=== PATIENT | female | born 1985 | race Caucasian/White ===

== ENCOUNTER 2017-06-25 04:03 | Emergency (ER) | payer OTHER ==
[~2017-06-25] VITALS: Ht 160 cm; Wt 77.1 kg
[~2017-06-25 04:03] MED LIST: AMITRIPTYLINE H25 M1 PO; AMOXIL 875 MG875 MG PO; AUGMENTIN 875-1 EACH PO; BENTYL10 M1 PO; CARAFATE 1GM1000 MG PO; CLINDAMYCIN HY300 MG PO; EXCEDRIN MIGRAI1 TAB PO; MEDROL4 M2 PO; METOCLOPRAMIDE10 MG PO; NASONEX0.05 MG/Ac NAS; NEXIUM 40MG40 MG PO; OXY IR5 MG PO; PERCOCET 325 MG1 TA2 PO; PERCOCET 5-3251 EACH PO; PHENERGAN25 M1 PO; REGLAN10 MG PO; TOPIRAMATE50 MG PO; TRAMADOL HCL50 M1 PO; TYLENOL XSTR500 MG PO; ZANTAC150 MG PO; ZOFRAN ODT4 M1 PO; ZOFRAN ODT4 MG SL
[2017-06-25] MEDS ORDERED: NEXIUM40 M1 PO (04:30)
--- NOTE | 2017-06-25 04:50 | ED GI/GU/ABDOMINAL COMPLAINT ---
See Addendum History of Present Illness General Chief Complaint: General Adult Stated Complaint: MULTI COMP X'S 2 HRS +N/CHILLS BODY ACHES\ Source: patient, family, old records Exam Limitations: no limitations Vital Signs & Intake/Output Vital Signs & Intake/Output Vital Signs Date Time Temp Pulse Resp B/P B/P Pulse O2 O2 Flow FiO2 Mean Ox Delivery Rate 06/25 0643 97.0 86 20 97/56 100 Room Air 06/25 0421 95.7 60 20 94/59 99 Room Air Allergies Coded Allergies: NSAIDS (Non-Steroidal Anti-Inflamma (ULCERS 11/04/15) aspirin (GI DISTRESS 05/23/15) ibuprofen (GI DISTRESS 05/23/15) naproxen (GI DISTRESS 05/23/15) Reconcile Medications Amoxicillin/Potassium Clav (Augmentin 875-125 Tablet) 875 MG-125 MG TABLET 1 TAB PO BID INFECTION Amoxicillin/Potassium Clav (Augmentin 875-125 Tablet) 875 MG-125 MG TABLET 1 TAB PO BID DENTAL Dicyclomine Hydrochloride (Bentyl) 10 MG CAPSULE 1 CAP PO TID PRN SPASM Esomeprazole (Nexium) 40 MG CAPSULE.DR 1 CAP PO DAILY ACID REFLUX (Reported) Esomeprazole (Nexium) 40 MG CAP 1 TAB PO BID GASTRITIS Methylprednisolone. (Medrol) 4 MG TAB.DS.PK 1 DP PO AD SWELLING 6 on day 1 then reduce by one tablet daily until gone Ondansetron (Zofran Odt) 4 MG TAB.RAPDIS 1 TAB PO Q6 PRN NAUSEA Oxycodone HCl/Acetaminophen (Percocet 5-325 MG Tablet) 5 MG-325 MG TABLET 1 TAB PO BID PRN PAIN Topiramate 50 MG TABLET 1 TAB PO BID MIGRAINES (Reported) Tramadol HCl 50 MG TABLET 1 TAB PO BIDP PRN PAIN Triage Note: PT HERE WITH C/O ABD PAIN THAT BEGAN AT 1 AM ALONG WITH NAUSEA AND CHILLS. PT ALOS REPORTS NUMBNESS IN HER HANDS. Triage Nurses Notes Reviewed? yes LMP (ages 10-50): unknown ? n Is pt currently ? No Onset: 2 days Duration: day(s):, constant, continues in ED, getting worse Timing: recent history Quality/Severity: aching, fullness, severe, stabbing Location: right lower quadrant Radiation: no radiation Activities at Onset: rest Prior Abdominal Problems: none Past Sexual History: Unobtainable at this time No Modifying Factors: none Associated Symptoms: abdominal pain, diarrhea, loss of appetite, nausea/vomiting , weakness HPI: 2 days prior to admission patient complains of anorexia and nausea frequent loose watery stool with mild cramping abdominal pain. There is prior to admission she complains of moderate to severe abdominal cramping with continued nausea vomiting diarrhea. She denies fever chills chest pain cough shortness of breath headache dysuria rash bleeding. Past History Travel History Traveled to [place] past 21 day No Medical History Any Pertinent Medical History? see below for history Neurological: migraine EENT: NONE Cardiovascular: NONE Respiratory: NONE Gastrointestinal: GASTRIC ULCER Hepatic: NONE Renal: NONE Musculoskeletal: NONE Psychiatric: NONE Endocrine: NONE Blood Disorders: NONE Cancer(s): NONE DIPLOMA DENTAL ASSISTANT/Reproductive: NONE Surgical History Surgical History: cholecystectomy, Psychosocial History Who do you live with Significant Other Services at Home None What is your primary language Bulgarian Tobacco Use: Current Daily Use Daily Tobacco Use Amount/Type: => 5 Cigarettes daily ETOH Use: denies use Illicit Drug Use: denies illicit drug use Family History Hx Contributory? No Review of Systems Review of Systems Constitutional: Reports: see HPI, malaise. EENTM: Reports: no symptoms. Respiratory: Reports: no symptoms. Cardiovascular: Reports: no symptoms. GI: Reports: see HPI, abdominal pain, diarrhea, nausea, vomiting. Genitourinary: Reports: no symptoms. Musculoskeletal: Reports: no symptoms. Skin: Reports: no symptoms. Neurological/Psychological: Reports: no symptoms. Hematologic/Endocrine: Reports: no symptoms. Immunologic/Allergic: Reports: no symptoms. All Other Systems: Reviewed and Negative Physical Exam Physical Exam General Appearance: well developed/nourished, alert, awake, anxious, moderate distress, obese Head: atraumatic, normal appearance Eyes: Bilateral: normal appearance, PERRL, EOMI, normal inspection. Ears, Nose, Throat, Mouth: hearing grossly normal, dry mucous membranes Neck: normal inspection, supple, full range of motion, normal alignment, no midline tenderness Respiratory: normal breath sounds, chest non-tender, no respiratory distress, quiet respiration, lungs clear Cardiovascular: regular rate/rhythm, normal peripheral pulses, norml femoral pulses equa Peripheral Pulses: 4+ carotid (R), 4+ carotid (L) Gastrointestinal: normal bowel sounds, soft, non-tender, no organomegaly Back: normal range of motion Extremities: normal range of motion Neurologic/Psych: no motor/sensory deficits, awake, alert, oriented x 3, normal gait, normal mood/affect, moderate needs teacher II-XII nml as tested Skin: intact, normal color, warm/dry Core Measures ACS in differential dx? No Sepsis Present: No Sepsis Focused Exam Completed? No Progress Differential Diagnosis: appendicitis, diverticulitis, gastritis, ovarian cyst, pancreatitis, UTI/pyelo Plan of Care: Orders Procedure Date/time Status URINALYSIS 06/25 434 Complete LIPASE 06/25 434 Complete HIGH SENSITIVITY CRP 06/25 434 Complete HUMAN BETA HCG SCREEN 06/25 434 Complete COMPREHENSIVE METABOLIC PANEL 06/25 434 Complete CBC WITHOUT DIFFERENTIAL 06/25 434 Complete Current Medications Sig/Gerhard Start time Last Medication Dose Stop Time Status Admin Sodium Chloride 1,000 ML BOLUS ONE 06/25 614 AC 06/25 (Normal Saline 0.9%) 06/25 07 0638 Laboratory Tests 06/25/17 0620: Urinalysis LIGHT H, Urine Color JENELLE, Urine Clarity CLDY H, Urine pH 6.0, Ur Specific [place] >= 1.030, Urine Protein 100 H, Urine Ketones NEG, Urine Nitrite NEG, Urine Bilirubin NEG@ICTO, Urine Urobilinogen 0.2, Ur Leukocyte Esterase NEG, Ur Microscopic SEDIMENT EXAMINED, Urine RBC 50-75 H, Urine WBC RARE, Ur Epithelial Cells FEW, Urine Bacteria MOD H, Urine Hemoglobin LARGE H, Urine Glucose NEG 06/25/17 0445: Anion Gap 11, Estimated GFR > 60, BUN/Creatinine Ratio 25.0, Glucose 116 H, Calcium 9.2, Total Bilirubin 0.5, AST 15, ALT 24, Alkaline Phosphatase 50, C- React Prot High Sens 0.9 L, Total Protein 6.5, Albumin 3.8, Globulin 2.7, Albumin/Globulin Ratio 1.4, Lipase 99, Total Beta HCG NEGATIVE, CBC w Diff NO MAN DIFF REQ, RBC 4.11 L, MCV 86.7, MCH 28.3, MCHC 32.7 L, RDW 15.9 H, MPV 6.8 L, Gran % 54.4, Lymphocytes % 37.2, Monocytes % 5.2, Eosinophils % 2.7, Basophils % 0.5, Absolute Granulocytes 5.3, Absolute Lymphocytes 3.6 H, Absolute Monocytes 0.5, Absolute Eosinophils 0.3, Absolute Basophils 0.1 Initial ED EKG: none Departure Departure Time of Disposition: 644 Disposition: HOME OR SELF CARE Condition: Stable Clinical Impression Primary Impression: Gastroenteritis Secondary Impressions: Dehydration syndrome Referrals: Jessica Gabriel MD (PCP/Family) Additional Instructions: Clear liquids in small amounts for 12-24 hours until better Departure Forms: Customer Survey General Discharge Information Prescriptions: Current Visit Scripts Hyoscyamine Sulfate (Levsin-Sl) 1-2 TAB SL Q4P PRN abdominal cramps #30 TAB Ondansetron (Zofran Odt) 1 TAB SL TID PRN nausea #10 TAB Loperamide HCl (Imodium A-D) 0 PO SEE ADMIN CRITERIA PRN diarrhea #24 TAB 1 tab after each loose stool up to 7 per day
[2017-06-25 04:53] LABS: ABSOLUTE BASOPHIL COUNT 0.1 /CUMM (0.0-0.2); ABSOLUTE EOSINOPHIL COUNT 0.3 /CUMM (0.0-0.7); ABSOLUTE GRANULOCYTE CT 5.3 /CUMM (1.4-6.5); ABSOLUTE LYMPH COUNT 3.6 /CUMM (1.2-3.4); ABSOLUTE MONOCYTE COUNT 0.5 /CUMM (0.10-0.60); BASOPHIL % 0.5 % (0.0-2.0); EOSINOPHIL % 2.7 % (0-5); GRANULOCYTE % 54.4 % (42.2-75.2); HEMATOCRIT 35.7 % (37-47); MEAN CORPUSCULAR HGB 28.3 PG (27.0-31.0); MEAN CORPUSCULAR HGB CONC 32.7 G/DL (33.0-37.0); MEAN CORPUSCULAR VOLUME 86.7 FL (81.0-99.0); MEAN PLATELET VOLUME 6.8 FL (7.4-10.4); PLATELET COUNT 403 /CUMM (130-400); RBC DISTRIBUTION WIDTH 15.9 % (11.5-14.5); RED BLOOD CELL CT 4.11 /CUMM (4.20-5.40); WHITE BLOOD CELL COUNT 9.8 /CUMM (4.8-10.8)
[2017-06-25] MEDS ORDERED: LEVSIN-SL0.125 MG SL (06:47)
[2017-06-25] MEDS ORDERED: ZOFRAN ODT4 M1 SL (06:47)
[2017-06-25] MEDS ORDERED: IMODIUM A-D2 M1 PO (06:47)
--- NOTE | 2017-06-25 09:46 | CT SCAN REPORT ---
EXAMINATION: CT ABDOMEN AND PELVIS WITHOUT CONTRAST CLINICAL INFORMATION: Right lower quadrant abdominal pain, hematuria COMPARISON: 05/01/2011 TECHNIQUE: Multidetector volumetric imaging was performed from the superior aspect of the liver through the pubic symphysis. Sagittal and coronal reformatted images were obtained on the technologist's workstation. DLP: 464.31 mGy-cm FINDINGS: LUNG BASES: There is bibasilar dependent atelectasis. LIVER, GALLBLADDER, AND BILIARY TREE: The liver is normal in size, shape, and attenuation. No focal hepatic lesion or biliary ductal dilatation is present. Patient is status post cholecystectomy. PANCREAS: Unremarkable. SPLEEN: Unremarkable. ADRENAL GLANDS: Unremarkable. KIDNEYS AND URETERS: There is a 3 mm calculus in the proximal right ureter with mild hydronephrosis. A few additional punctate calculi are present in both kidneys. No left-sided hydronephrosis. BLADDER: Unremarkable. GASTROINTESTINAL TRACT: The small and large bowel are unremarkable. The appendix is not clearly delineated. ABDOMINAL WALL: No significant hernia is appreciated. LYMPH NODES: No lymphadenopathy is seen, though assessment is limited in the absence of intravenous contrast. VASCULAR: Unremarkable. PELVIC VISCERA: Unremarkable. OSSEOUS STRUCTURES: Unremarkable. IMPRESSION: Proximal right ureteral calculus measuring 3 mm with mild hydronephrosis. Few additional punctate bilateral renal calculi.
[2017-06-25 09:49] VITALS: BP 149/76
[2017-06-25] MEDS ORDERED: NORCO 5-325 TA1 EACH PO (10:27)
== END 2017-06-25 10:37 ==
LOC: ERH 04:03
PROVIDERS: Emergency Medicine
DX: K52.9 Noninfective gastroenteritis and colitis, unspecified (principal); E86.0 Dehydration
CPT/HCPCS: 74176; 81001; 96374; 96375; J0131; J2405; J2765